=== PATIENT | female | born 1995 | race Two or more races ===

== ENCOUNTER 2022-10-06 04:07 | Inpatient (IN) | payer OTHER ==
[~2022-10-06] VITALS: Ht 157.5 cm; Wt 67.1 kg
== END 2022-10-07 10:22 | disposition home or self-care (01) | DRG 805 ==
LOC: LDR 04:07 → SURH 04:07
PROVIDERS: ADMIT Obstetrics & Gynecology; ATTEND Obstetrics & Gynecology
PROC: 10E0XZZ Delivery of Products of Conception, External Approach (ICD-10-PCS; principal; 2022-10-06)
PROC: 3E033VJ Introduction of Other Hormone into Peripheral Vein, Percutaneous Approach (ICD-10-PCS; 2022-10-06)
PROC: 4A1HXCZ Monitoring of Products of Conception, Cardiac Rate, External Approach (ICD-10-PCS; 2022-10-06)
DX: O60.12X0 Preterm labor second trimester with preterm delivery second trimester, not applicable or unspecified (principal); O45.8X2 Other premature separation of placenta, second trimester; Z37.1 Single stillbirth; O42.112 Preterm premature rupture of membranes, onset of labor more than 24 hours following rupture, second trimester; Z3A.19 19 weeks gestation of pregnancy

== ENCOUNTER 2023-09-03 12:22 | Emergency (ER) | payer OTHER ==
[~2023-09-03] VITALS: Ht 157.5 cm; Wt 59.9 kg
[2023-09-03 17:00] LABS: PH,URINE 7.5 (5.0-8.0); URINE APPEARANCE Clear; URINE BILIRRUBIN Negative (NEGATIVE); URINE BLOOD Negative; URINE COLOR Yellow; URINE GLUCOSE Negative (NEGATIVE); URINE LEUKOCYTE Trace; URINE NITRATE Negative; URINE PROTEIN Negative (NEGATIVE); URINE UROBILINOGEN 0.2 E.U./dl
[2023-09-03 17:01] LABS: URINE BACTERIA 321.2 uL (0.0-1933); URINE EPITHELIAL CELLS 6.1 uL (0.0-38.8); URINE RBC 25.4 uL (0.0-20.8); URINE WBC 5.5 uL (0.0-23.2)
[2023-09-03 17:03] LABS: HEMATOCRIT 40.9 % (36.0-45.00); HEMOGLOBIN 13.9 g/dL (12.0-15.00); MEAN CELL VOLUME 91.6 fL (80.00-100.00); MEAN CORPUSCULAR HGB CONC 33.9 g/dl (32.0-36.0); PLATELET COUNT 311 K/uL (150-450); RED BLOOD COUNT 4.47 M/uL (4.00-6.00); RED CELL DISTRIBUTION WIDTH 13.4 % (11.5-14.5)
[2023-09-03 18:20] LABS: CALCIUM 9.2 mg/dL (8.5-10.1); CREATININE SERUM 0.68 mg/dL (0.55-1.02); GFR 104.59
[2023-09-03 18:24] LABS: POTASSIUM 4.69 mEq/L (3.5-5.1)
== END 2023-09-03 19:14 | disposition home or self-care (01) ==
LOC: ER 12:24
PROVIDERS: General Practice
DX: O26.891 Other specified pregnancy related conditions, first trimester (principal); R10.2 Pelvic and perineal pain; Z3A.01 Less than 8 weeks gestation of pregnancy

== ENCOUNTER 2023-10-07 08:00 | Day surgery (SDC) | payer OTHER ==
[2023-10-06 15:26] LABS: HEMATOCRIT 38.7 % (36.0-45.00); HEMOGLOBIN 13.1 g/dL (12.0-15.00); MEAN CELL VOLUME 90.2 fL (80.00-100.00); MEAN CORPUSCULAR HEMOGLOBIN 30.5 pg (27.00-32.0); MEAN CORPUSCULAR HGB CONC 33.8 g/dl (32.0-36.0); PLATELET COUNT 298 K/uL (150-450); RED BLOOD COUNT 4.29 M/uL (4.00-6.00); RED CELL DISTRIBUTION WIDTH 13.7 % (11.5-14.5)
[2023-10-06 15:44] LABS: INR 0.97; PARTIAL THROMBOPLASTIN TIME 30.2 SECONDS (22.0-34.0); PROTHROMBIN TIME 10.6 SECONDS (9.0-11.5)
[2023-10-07] MEDS ORDERED: POVIDONE-IODINE 118 ML BOTT TOP ONE (08:33)
[2023-10-07] MEDS ORDERED: CEFOXITIN SODIUM 2,000 MG VIAL IV ONE (08:33)
[2023-10-07] MEDS ORDERED: CHLORHEXIDINE GLUCONATE 120 ML BOTTLE TOP ONE (08:33)
== END 2023-10-07 17:00 | disposition home or self-care (01) ==
LOC: CIR.AMB 08:00
PROVIDERS: ATTEND Obstetrics & Gynecology Maternal & Fetal Medicine
DX: O02.1 Missed abortion (principal)